=== PATIENT | male | born 1955 | race Caucasian/White ===

== ENCOUNTER 2018-01-11 16:47 | Inpatient (IN) | payer BC ==
[~2018-01-11] VITALS: Ht 172.7 cm; Wt 80.3 kg
[2018-01-11 16:50] VITALS: Ht 172.7 cm; Wt 80.3 kg
[2018-01-11] MEDS ORDERED: HYDROCHLOROTH12.5 M2 PO (17:40)
[2018-01-11 18:03] LABS: BASOPHIL % 0.3 % (0-2); PLATELET COUNT 270 x10^3mcL (130-400); RED CELL DISTRIBUTION WIDTH 13.8 % (11.5-14.5)
[2018-01-11 18:04] LABS: CALCIUM 8.9 mg/dL (8.5-10.1); CARBON DIOXIDE 25.1 mmol/L (21-32); CHLORIDE SERUM 107 mmol/L (98-107); CREATININE SERUM 1.2 mg/dL (0.7-1.3); GFR1 > 60 mL/min; GLUCOSE SERUM 101 mg/dL (74-106); POTASSIUM SERUM 3.6 mmol/L (3.5-5.1); SODIUM SERUM 143 mmol/L (136-145)
[2018-01-11 18:22] LABS: T3 TOTAL 1.22 ng/mL
[2018-01-11 18:44] LABS: FREE T4 1.01 ng/dL (0.76-1.46); FREE THYROXINE INDEX 2.4 ug/dL (1.4-4.5); T4(THYROXINE) 7.4 ug/dL (4.7-13.3)
[2018-01-11 18:59] LABS: microscopic required? NO
[2018-01-11 19:13] LABS: CHOLESTEROL/HDL RATIO 3.6; MAGNESIUM 2.1 mg/dL (1.8-2.4); PHOSPHOROUS 2.6 mg/dL (2.5-4.9)
[2018-01-11 19:26] LABS: UA SPECIFIC GRAVITY <=1.005 (1.005-1.035); urine erythrocyte NEGATIVE (NEGATIVE)
[2018-01-11 19:37] LABS: AMPHETAMINE QUAL UR NONE DETECTED (NEG <=1000)
[2018-01-11 19:38] VITALS: BP 122/88
[2018-01-12 05:35] VITALS: BP 127/92
[2018-01-12 06:11] LABS: BASOPHIL % 0.3 % (0-2); PLATELET COUNT 227 x10^3mcL (130-400); RED CELL DISTRIBUTION WIDTH 14.4 % (11.5-14.5)
[2018-01-12 06:21] LABS: CALCIUM 8.6 mg/dL (8.5-10.1); CARBON DIOXIDE 29.7 mmol/L (21-32); CHLORIDE SERUM 109 mmol/L (98-107); CREATININE SERUM 1.2 mg/dL (0.7-1.3); GFR1 > 60 mL/min; GLUCOSE SERUM 91 mg/dL (74-106); MAGNESIUM 2.2 mg/dL (1.8-2.4); POTASSIUM SERUM 4.4 mmol/L (3.5-5.1); SODIUM SERUM 144 mmol/L (136-145)
[2018-01-12 09:42] VITALS: BP 103/72
[2018-01-12 13:28] VITALS: BP 115/82
[2018-01-12 18:12] VITALS: BP 134/88
[2018-01-12 20:42] VITALS: BP 114/81
[2018-01-12 20:53] VITALS: BP 104/69
[2018-01-13 05:36] VITALS: BP 118/69
[2018-01-13 05:59] LABS: BASOPHIL % 0.2 % (0-2); PLATELET COUNT 235 x10^3mcL (130-400); RED CELL DISTRIBUTION WIDTH 13.7 % (11.5-14.5)
[2018-01-13 06:17] LABS: CALCIUM 8.9 mg/dL (8.5-10.1); CARBON DIOXIDE 30.2 mmol/L (21-32); CHLORIDE SERUM 109 mmol/L (98-107); CREATININE SERUM 1.1 mg/dL (0.7-1.3); GFR1 > 60 mL/min; GLUCOSE SERUM 93 mg/dL (74-106); PHOSPHOROUS 2.9 mg/dL (2.5-4.9); POTASSIUM SERUM 4.3 mmol/L (3.5-5.1); SODIUM SERUM 143 mmol/L (136-145)
[2018-01-13 10:29] VITALS: BP 103/71
[2018-01-13] MEDS ORDERED: METOPROLOL TART25 M1 PO (13:12)
[2018-01-13] MEDS ORDERED: LIPI20 PO (13:12)
[2018-01-13] MEDS ORDERED: ECO81 PO (13:13)
== END 2018-01-13 16:30 | disposition home or self-care (01) | DRG 310 ==
LOC: ED 16:47 → DU 18:36
PROVIDERS: Emergency Medicine; Family Medicine
DX: I48.91 Unspecified atrial fibrillation (principal); I10 Essential (primary) hypertension; E78.5 Hyperlipidemia, unspecified; R73.03 Prediabetes; E87.8 Other disorders of electrolyte and fluid balance, not elsewhere classified; E02 Subclinical iodine-deficiency hypothyroidism; I34.0 Nonrheumatic mitral (valve) insufficiency; Z88.2 Allergy status to sulfonamides; Z80.9 Family history of malignant neoplasm, unspecified; Z83.3 Family history of diabetes mellitus; Z82.49 Family history of ischemic heart disease and other diseases of the circulatory system
CPT/HCPCS: 83880; 84439; 85378; A9500; J0153; J1650; J2785; J3475; J3490; J7030